=== PATIENT | male | born 1960 | race Caucasian/White ===

== ENCOUNTER 2020-06-08 12:56 | Emergency (ER) | payer OTHER ==
[~2020-06-08] VITALS: Ht 182.9 cm; Wt 93.0 kg
[2020-06-08] MEDS ORDERED: CIPRO500 MG PO (13:50)
[2020-06-08] MEDS ORDERED: BACTRIM DS TAB1 EACH PO (13:50)
[2020-06-08 14:25] VITALS: BP 140/97
== END 2020-06-08 14:26 | disposition left against medical advice (07) ==
LOC: M.ERS 12:56
DX: S61.032A Puncture wound without foreign body of left thumb without damage to nail, initial encounter (principal); S71.102A Unspecified open wound, left thigh, initial encounter; L08.9 Local infection of the skin and subcutaneous tissue, unspecified; X58.XXXA Exposure to other specified factors, initial encounter; Y93.89 Activity, other specified; Y92.89 Other specified places as the place of occurrence of the external cause; Y99.8 Other external cause status

== ENCOUNTER 2020-06-09 00:32 | Emergency (ER) | payer OTHER ==
[~2020-06-09] VITALS: Ht 182.9 cm; Wt 95.3 kg
[~2020-06-09 00:32] MED LIST: BACTRIM DS TAB1 EACH PO; CIPRO500 MG PO
[2020-06-09 02:03] VITALS: BP 111/92
== END 2020-06-09 02:05 | disposition home or self-care (01) ==
LOC: M.ERS 00:32
DX: L02.512 Cutaneous abscess of left hand (principal); L02.511 Cutaneous abscess of right hand

== ENCOUNTER 2021-04-06 22:15 | Emergency (ER) | payer OTHER ==
[~2021-04-06] VITALS: Ht 180.3 cm; Wt 84.8 kg
[2021-04-06 22:46] LABS: ABSOLUTE BASOPHILS 0.2 thou/uL (0.0-0.2); ABSOLUTE EOSINOPHILS 0.1 thou/uL (0.0-0.7); ABSOLUTE LYMPHOCYTES 2.4 thou/uL (0.8-5.3); ABSOLUTE MONOCYTES 0.6 thou/uL (0.0-1.2); ABSOLUTE NEUTROPHILS 2.4 thou/uL (1.6-8.1); BASOPHILS 2.8 %; HEMOGLOBIN 12.6 gm/dL (14.0-18.0); LYMPHOCYTES 43.6 %; MCH 34.9 pg (26.0-34.0); MCV 99.8 fL (80.0-100.0); MONOCYTES 10.3 %; NUCLEATED RBCS 0 /100WBC; PLATELET COUNT* 123 thou/uL (150-400); POLYS 42.3 %; RBC 3.61 mil/uL (4.50-6.00); RDW-CV 13.6 % (10.5-14.5); WBC 5.6 thou/uL (4.0-11.0)
[2021-04-06 22:54] LABS: CALCIUM 8.2 mg/dL (8.5-10.1)
[2021-04-06 22:58] LABS: TOTAL BILIRUBIN 1.1 mg/dL (<0.1-1.0); TOTAL PROTEIN 7.8 g/dL (6.4-8.2)
[2021-04-06 23:24] LABS: URINE BILIRUBIN NEGATIVE (Negative); URINE BLOOD 1+ (Negative); URINE CLARITY CLEAR; URINE COLOR DARK YELLOW; URINE GLUCOSE-RANDOM NEGATIVE (Negative); URINE KETONES TRACE (Negative); URINE LEUKOCYTES-REFLEX NEGATIVE (Negative); URINE NITRITE-REFLEX NEGATIVE (Negative); URINE PROTEIN 1+ (Negative); URINE SPECIFIC GRAVITY 1.015 (1.005-1.030)
[2021-04-07 00:28] LABS: HYALINE CASTS 4-10 Moderate /LPF (None Seen); SQUAMOUS 0-3 Few /LPF (0-3)
[2021-04-07 00:29] LABS: URINE RBC 0-2 Rare /HPF (0-2); URINE WBC-REFLEX None Seen /HPF (0-5)
[2021-04-07 00:30] LABS: BACTERIA-REFLEX 1-9 Few /HPF (None Seen); CALCIUM OXALATE 4-10 Moderate /LPF (None Seen)
[2021-04-07 03:53] VITALS: BP 118/70
== END 2021-04-07 03:53 | disposition home or self-care (01) ==
LOC: M.ERS 22:15
PROVIDERS: Personal Emergency Response Attendant
DX: E86.0 Dehydration (principal); N20.0 Calculus of kidney; F10.129 Alcohol abuse with intoxication, unspecified; Y90.8 Blood alcohol level of 240 mg/100 ml or more

== ENCOUNTER 2021-04-10 11:18 | Emergency (ER) | payer OTHER ==
[~2021-04-10] VITALS: Ht 180.3 cm; Wt 84.8 kg
--- NOTE | ~2021-04-10 | EMS ---
[place] [address] EMS Patient Care Report Name: [facility]HAN [id number] Admission: 04/10/21 Attend Phys: Discharge: 04/10/21 Date of : 62 Report #: [id number] THIS REPORT FOR: //name// Report Transmitted: 04/10/2021 19:18 EMS Care Summary [facility] Incident [id number] @ 04/10/2021 10:45 Incident Location [address] [place] [address] Patient ORI KHAN Male, 60 Years 1960 Patient Address [address] [place] [address] Chief Complaint ETOH Abuse Disposition Transported No Lights/[place] Dispatch Reason No Other Appropriate Choice Transported To [facility] Narrative Med 1 and Engine 2 were dispatched for a [age] year-old homeless male that was lying intoxicated in front of a local business. [employer] called EMS to respond they reported the patient was c/o lower back pain. Upon arrival, I approached the patient who was lying on his left side on the sidewalk in front of the business. Patient was intoxicated and admitted to drinking a lot of vodka and smoking some marijuana today. Patient was pleasant and got up and walked to the stretcher. The patient denied any back pain but says he has it off and on. Patient was secured to the stretcher via seatbelts and moved to the ambulance without incident. In the ambulance, patient's vitals were obtained and documented. Patient was [facility] [address] [place] [address] EMS Patient Care Report Name: ORI KHAN Room: [facility]#: [id number] Admission: 04/10/21 Attend Phys: Discharge: 04/10/21 Date of : 62 Report #: [id number] monitored throughout transport. Hospital report was given via radio with no questions or orders received or requested. Med 1 arrived at the hospital. Patient was moved into the ER via stretcher without incident. Patient care was transferred to ER staff in room 8. Med `1 returned back into service. [id number] [facility] Initial Vitals @11:02P: 68,R: 18,BP: 104/62,GCS: 15,SpO2: 99,Revised Trauma: 12, @11:15P: 86,R: 18,BP: 102/68,Pain: 0/10,GCS: 15,SpO2: 98,Revised Trauma: 12, Assessments @11:02MENTAL:Confused,Person Oriented,Time Oriented,Place Oriented,Event Oriented,SKIN:HEENT:Head/Face: No Abnormalities,LUNG SOUNDS:ABDOMEN:PELVIS//GI:EXTREMITIES:Left Arm: No Abnormalities,Right Arm: No Abnormalities,PULSE:NEURO:No Abnormalities, Impression Back Pain Procedures @11:02BLS AssessmentResponse: Unchanged Timeline 10:45,Call Received 10:45,Dispatched 10:46,En Route 10:50,On Scene 10:51,At Patient 10:58,Depart Scene 11:02,BLS Assessment,Response: Unchanged 11:02,BP: 104/62 M,PULSE: 68,RR: 18 R,SPO2: 99 Ox,ETCO2: ,BG: ,PAIN: ,GCS: 15, 11:15,BP: 102/68 M,PULSE: 86,RR: 18 R,SPO2: 98 Ox,ETCO2: ,BG: ,PAIN: 0,GCS: 15, 11:16,At Destination 12:06,Call Closed Disclaimer v1.1 Copyright 2020 [employer] This EMS Care Summary contains data elements from the applicable legal record (which may be displayed differently). It is designed to provide pertinent information for the following purposes: continuity of care, clinical quality, and state data reporting. The complete legal record is available to ED staff and administrators of the receiving hospital in [facility]'s Patient [place] [address] EMS Patient Care Report Name: ORI KHAN [id number] Admission: 04/10/21 Attend Phys: Discharge: 04/10/21 Date of : 62 Report #: [id number] is provided "as is."
[2021-04-10 17:54] VITALS: BP 101/58
== END 2021-04-10 17:55 | disposition home or self-care (01) ==
LOC: M.ERS 11:18
DX: F10.129 Alcohol abuse with intoxication, unspecified (principal); F12.90 Cannabis use, unspecified, uncomplicated; F15.90 Other stimulant use, unspecified, uncomplicated; Z56.0 Unemployment, unspecified; Y90.9 Presence of alcohol in blood, level not specified

== ENCOUNTER 2021-06-13 14:13 | Emergency (ER) | payer OTHER ==
[~2021-06-13] VITALS: Ht 185.4 cm; Wt 80.3 kg
--- NOTE | ~2021-06-13 | EMS ---
[place] [address] EMS Patient Care Report Name: ORI KHAN Room: [facility]#: [id number] Admission: 06/13/21 Attend Phys: Discharge: Date of : 62 Report #: [id number] THIS REPORT FOR: //name// Report Transmitted: 06/13/2021 14:07 EMS Care Summary [place] [facility] Incident [id number] @ 06/13/2021 13:35 Incident Location [address] [facility] Patient ORI KHAN Male, 60 Years 1960 [place] [address] Patient History Alcohol Abuse, Patient Allergies No known allergies, Patient Medications None Reported, Chief Complaint ETOH Disposition Transported No Lights/[place] Dispatch Reason Altered Mental Status Transported To [facility] Narrative Dispatched to address noted for a knee injury. [place] med 1 and utility 1 en route and [place] [address] EMS Patient Care Report Name: ORI KHAN Room: [facility]#: [id number] Admission: 06/13/21 Attend Phys: Discharge: Date of : 62 Report #: [id number] Arrived and met law enforcement on scene. They where called for a man that had fallen in someone else's drive way. Patient was being walked to ambulance and was very unsteady on his feet. Law enforcement stated that the patient claimed to have drank alcohol as his normal and was walking around. Patient is know to me homeless and today he has fall onto the concreate of someone's driveway. Patient has some minor bleeding noted to the right lower leg and no other major trauma noted. Patient was confused and appeared intoxicated. Patient was sat on stretcher and then buckled in. Patient stated no complaint. Once in ambulance, vitals where taken at time noted. Patient was uncooperative at times and could not or would not answer questions. Patient was designated as a GCS of 14. Blood glucose was taken at time noted. [facility] was agreed upon by the patient and then transport was started. While en route, no SI or HI statements made. Patient would occasionally become agitated but was easily redirected. Vitals where taken as noted and radio report was given. Arrived and took patient to room 4. Patient was moved to bed and RN was given verbal report. RN signed for patient and patient signed for self. END REPORT EMT-P [place] Initial Vitals @13:45P: 110,R: 16,BP: 132/77,Pain: 0/10,GCS: 14,Glucose: 112,SpO2: 99,Revised Trauma: 12,[place] Suspected: false @14:05P: 88,R: 16,BP: 150/90,Pain: 0/10,GCS: 14,SpO2: 99,Revised Trauma: 12,[place] Suspected: false Impression Alcohol use Timeline 13:33,Call Received 13:35,Dispatched 13:35,En Route 13:37,Initial Responder On Scene 13:37,On Scene 13:38,At Patient 13:44,Depart Scene 13:45,BP: 132/77 M,PULSE: 110,RR: 16 R,SPO2: 99 Ox,ETCO2: ,B,PAIN: 0,GCS: 14, [place] [address] EMS Patient Care Report Name: ORI KHAN Room: [facility]#: [id number] Admission: 06/13/21 Attend Phys: Discharge: Date of : 62 Report #: [id number] 14:05,BP: 150/90 M,PULSE: 88,RR: 16 R,SPO2: 99 Ox,ETCO2: ,BG: ,PAIN: 0,GCS: 14, 14:07,At Destination 14:09,Transfer Patient 14:35,Call Closed 14:35,In District Disclaimer v1.1 Copyright 2020 [employer] This EMS Care Summary contains data elements from the applicable legal record (which may be displayed differently). It is designed to provide pertinent information for the following purposes: continuity of care, clinical quality, and state data reporting. The complete legal record is available to ED staff and administrators of the receiving hospital in [facility]'s Patient Tracker. All data is provided "as is."
[2021-06-13 16:49] VITALS: BP 118/75
== END 2021-06-13 16:51 | disposition home or self-care (01) ==
LOC: M.ERS 14:13
DX: S80.211A Abrasion, right knee, initial encounter (principal); F10.129 Alcohol abuse with intoxication, unspecified; W19.XXXA Unspecified fall, initial encounter; Y93.89 Activity, other specified; Y92.89 Other specified places as the place of occurrence of the external cause; Y99.8 Other external cause status